=== PATIENT | female | born 1955 | race Caucasian/White ===

== ENCOUNTER 2022-05-05 08:56 | Observation (INO) ==
--- NOTE | 2022-05-05 09:11 | EKG ---
Test Reason : Chest pain Blood Pressure : */* mmHG Vent. Rate : 65 BPM Atrial Rate : 65 BPM P-R Int : 220 ms QRS Dur : 80 ms QT Int : 390 ms P-R-T Axes : 53 -2 40 degrees QTc Int : 405 ms Sinus rhythm with 1st degree AV block Low voltage QRS Cannot rule out Anterior infarct , age undetermined Abnormal ECG No previous ECGs available Confirmed by Jeremiah Gandhi ([id number]) on 05/06/2022 7:42:00 AM Referred By: Confirmed By: Jeremiah Gandhi
--- NOTE | 2022-05-05 09:11 | DR.CP ---
HPI Time Seen Time Seen by Provider: 05/05/22 09:10 Complaint Chief Complaint Doctor Comments: Patient states that she awoke this am with chest pain.She describes it as a sharp pain in her left chest that is nonradiating. Patient states that the pain was 4/10 when it started.She states that it is 0/10 at this time. Patient has a brother who was diagnosed with CAD age 60.She also has htn.Patient had a stress test many trs ago.Her chest pain was associated with sob. Patient denies: fever,n,v,headache,back pain,abdominal pain,cough,sore throat. PMH PMH Past Medical History: Hypertension Past Surgical History: Yes Surgical History: , Cholecystectomy and Hysterectomy Family History Family Medical History: [place] and Coronary Artery Disease Social History Do you use any recreational Drugs:: No PE Vitals Vitals: Temperature 98 F Pulse Rate 72 Respiratory Rate 14 Blood Pressure [Left Arm] 149/82 Blood Pressure 143/73 O2 Sat by Pulse Oximetry 98 COURSE Treatment Treatment: Patient was brought to a monitored room.IV access was initiated.Patient was given ntp 1/2 inch to ACW and asa 162mg po. Patient is currently not experiencing chest pain. Patient's BP continues to elevate and patient was given clonidine 0.1mg po.Patient's bp continued to elevate and patient was given hydralazine 10mg iv. Discussed case with Dr Gooden.Patient has been accepted to Dr Gooden's service for further inpatient evaluation and management of chest pain and hypertensive urgency. ROR Labs Reviewed Laboratory Results Reviewed?: Yes Result Diagrams: 05/05/22 09:18 05/05/22 09:18 Laboratory: WBC 10.6 X10^3/uL (3.6-10.0) H 05/05/22 09:18 RBC 4.39 X10^6/uL (3.5-5.4) 05/05/22 09:18 Hgb 13.0 g/dL (12.0-16.0) 05/05/22 09:18 Hct 37.8 % (36.0-47.0) 05/05/22 09:18 MCV 86.1 fL (80.0-100.0) 05/05/22 09:18 MCH 29.5 pg (27.0-34.0) 05/05/22 09:18 MCHC 34.2 g/dL (33.0-35.0) 05/05/22 09:18 RDW 13.9 % (11.6-16.5) 05/05/22 09:18 Plt Count 231 X10^3/uL (150.0-450.0) 05/05/22 09:18 MPV 8.7 fL (7.4-11.0) 05/05/22 09:18 Neut % (Auto) 72.3 % (42.0-75.0) 05/05/22 09:18 Lymph % (Auto) 17.3 % (21.0-51.0) L 05/05/22 09:18 [place] % (Auto) 5.5 % (0.0-13.0) 05/05/22 09:18 Eos % (Auto) 4.3 % (0.9-2.9) H 05/05/22 09:18 Baso % (Auto) 0.6 % (0.2-1.0) 05/05/22 09:18 Neut # (Auto) 7.7 x10^3/uL (2.2-4.8) H 05/05/22 09:18 Lymph # (Auto) 1.8 X10^3/uL (1.3-2.9) 05/05/22 09:18 [place] # (Auto) 0.6 x10^3/uL (0.3-0.8) 05/05/22 09:18 Eos # (Auto) 0.5 x10^3/uL (0.0-0.2) H 05/05/22 09:18 Baso # (Auto) 0.1 X10^3/uL (0.0-0.1) 05/05/22 09:18 Absolute Nucleated RBC 0.0 /100WBC 05/05/22 09:18 PT 12.7 SECONDS (11.8-14.3) 05/05/22 09:18 INR Target Range - 05/05/22 09:18 INR 0.98 (0.8-1.3) 05/05/22 09:18 APTT 26.6 SECONDS (22.9-36.5) 05/05/22 09:18 PTT Comment - 05/05/22 09:18 Sodium 140 mmol/L (136-145) 05/05/22 09:18 Corrected Sodium TNP 05/05/22 09:18 Potassium 3.7 mmol/L (3.5-5.1) 05/05/22 09:18 Chloride 105 mmol/L (98-107) 05/05/22 09:18 Carbon Dioxide 26.8 mmol/L (21-32) 05/05/22 09:18 BUN 29 mg/dL (7-18) H 05/05/22 09:18 Creatinine 1.08 mg/dL (0.55-1.02) H 05/05/22 09:18 Est GFR (MDRD) Af Amer > 60 (>60) 05/05/22 09:18 Est GFR (MDRD) Non-Af 54 (>60) L 05/05/22 09:18 Glucose 88 mg/dL (65-99) 05/05/22 09:18 Calcium 8.3 mg/dL (8.5-10.1) L 05/05/22 09:18 Corrected Calcium 8.9 mg/dL (8.5-10.1) 05/05/22 09:18 Magnesium 1.8 mg/dL (2.0-2.9) L 05/05/22 09:18 Total Bilirubin 0.30 mg/dL (0.2-1.0) 05/05/22 09:18 AST 13 Units/L (15-37) L 05/05/22 09:18 ALT 11 Units/L (12-78) L 05/05/22 09:18 Alkaline Phosphatase 93 Units/L (46-116) 05/05/22 09:18 Creatine Kinase 28 Units/L (26-192) 05/05/22 09:18 Troponin I High Sens 5.5 ng/L (4.0-60.0) 05/05/22 09:18 B-Natriuretic Peptide 39.5 pg/mL (0-79) 05/05/22 09:18 Total Protein 6.7 g/dL (6.4-8.2) 05/05/22 09:18 Albumin 3.2 g/dL (3.4-5.0) L 05/05/22 09:18 Globulin 3.5 g/dL (2.5-4.5) 05/05/22 09:18 Albumin/Globulin Ratio 0.9 Ratio (1.1-2.1) L 05/05/22 09:18 Amylase 63 Units/L (25-115) 05/05/22 09:18 Lipase 135 Units/L (73-393) 05/05/22 09:18 XRAY XRAY Interpreted by: Radiologist X-ray Results: CXR: No cardiopulmonary disease EKG Compared to prior EKG Dated: 04/07/22 Rate: 65 Portal: Normal (negative axis) Block: 1 (1st degree Block) Opioid Opioid Risk Tool Age (Nik box if 16-45): No History of Preadolescent Sexual Abuse: No Total: 0 Total Score Risk Category: Low Risk Copyright: Connell LR predicting aberrant behaviors Discharge Plan Diagnosis Discharge Problem: Chest pain, Hypertensive urgency Discharge Plan Patient Disposition: ADMITTED INPATIENT Condition: Stable Prescriptions: No Action clonidine HCl 0.1 mg tablet 1 tab PO BID tizanidine 4 mg tablet 1 tab PO QPM meloxicam 15 mg tablet 1 tab PO QDAY irbesartan 300 mg tablet 1 tab PO QDAY triamterene-hydrochlorothiazid 37.5-25 mg capsule 1 cap PO QDAY Health Concerns: Post Hospitalization: new medications and changes needed to prevent readmission or further decline. Pt educated and given instructions on all concerns. Plan of Treatment: Continue with present treatment and follow up plan. Pt is to keep follow up appointment as instructed and take medications as ordered. Orders to Discharge Patient Discharge Orders: Transfer (Routine); Ordered 05/05/22 Ordered By: Jennifer Osman Follow ups/Referrals Follow ups/Referrals: AFR[facility] BRAND [Primary Care Provider] - 3 days
[2022-05-05 09:14] VITALS: BMI 32.6
[2022-05-05] MEDS ORDERED: ASPIRIN 81 MG CHEWTAB PO STA (09:24)
[2022-05-05] MEDS ORDERED: NITRO-BID OINT 2% UD (E.R. USE ONLY) TD ONE (09:31)
[2022-05-05] MEDS ORDERED: NITRO-BID OINT 2% UD (E.R. USE ONLY) ONE (09:36)
[2022-05-05] MEDS ORDERED: ASPIRIN 81 MG CHEWTAB ONE (09:43)
[2022-05-05 09:47] LABS: BASOPHILS # (AUTO) 0.1 X10^3/uL (0.0-0.1); BASOPHILS % (AUTO) 0.6 % (0.2-1.0); EOSINOPHILS # (AUTO) 0.5 x10^3/uL (0.0-0.2); EOSINOPHILS % (AUTO) 4.3 % (0.9-2.9); HEMATOCRIT 37.8 % (36.0-47.0); LYMPHOCYTES # (AUTO) 1.8 X10^3/uL (1.3-2.9); LYMPHOCYTES % (AUTO) 17.3 % (21.0-51.0); MEAN CORPUSCULAR HEMOGLOBIN 29.5 pg (27.0-34.0); MEAN CORPUSCULAR HGB CONC 34.2 g/dL (33.0-35.0); MEAN CORPUSCULAR VOLUME 86.1 fL (80.0-100.0); MEAN PLATELET VOLUME 8.7 fL (7.4-11.0); MONOCYTES # (AUTO) 0.6 x10^3/uL (0.3-0.8); MONOCYTES % (AUTO) 5.5 % (0.0-13.0); NEUTROPHILS # (AUTO) 7.7 x10^3/uL (2.2-4.8); NEUTROPHILS % (AUTO) 72.3 % (42.0-75.0); RED BLOOD COUNT 4.39 X10^6/uL (3.5-5.4); RED CELL DISTRIBUTION WIDTH 13.9 % (11.6-16.5); WHITE BLOOD COUNT 10.6 X10^3/uL (3.6-10.0)
[2022-05-05 09:51] LABS: INR 0.98 (0.8-1.3)
[2022-05-05 10:07] LABS: ALANINE AMINOTRANSFERASE 11 Units/L (12-78); ALBUMIN 3.2 g/dL (3.4-5.0); ALKALINE PHOSPHATASE 93 Units/L (46-116); AMYLASE 63 Units/L (25-115); ASPARTATE AMINO TRANSFERASE 13 Units/L (15-37); BLOOD UREA NITROGEN 29 mg/dL (7-18); CALCIUM 8.3 mg/dL (8.5-10.1); CARBON DIOXIDE 26.8 mmol/L (21-32); CHLORIDE 105 mmol/L (98-107); COR CA(FOR HYPOALB) 8.9 mg/dL (8.5-10.1); CREATINE KINASE 28 Units/L (26-192); CREATININE 1.08 mg/dL (0.55-1.02); LIPASE 135 Units/L (73-393); MAGNESIUM 1.8 mg/dL (2.0-2.9); SODIUM 140 mmol/L (136-145); TOTAL PROTEIN 6.7 g/dL (6.4-8.2); eGFR NON BLACK RACES 54 (>60)
[2022-05-05] MEDS ORDERED: CATAPRES TAB 0.1 MG PO ONE (10:38)
[2022-05-05] MEDS ORDERED: TYLENOL 325 MG TAB PO ONE ×2 (10:41→10:45)
[2022-05-05] MEDS ORDERED: CATAPRES TAB 0.1 MG ONE (10:41)
[2022-05-05] MEDS ORDERED: APRESOLINE INJ 20 MG VIAL IVP ONE (11:10)
[2022-05-05] MEDS ORDERED: APRESOLINE INJ 20 MG VIAL ONE (11:11)
--- NOTE | 2022-05-05 11:15 | RAD ---
HISTORYLeft-sided chest painSTUDYAP chestCOMPARISONNoneFINDINGSHeart size normal, mild aortic dilation, clear lungs and pleural spaces.IMPRESSIONNo acute chest abnormality identified.Electronically signed by: STAN NEUMANN (May 05, 2022 11:13:39)
--- NOTE | 2022-05-05 11:53 | EKG ---
Test Reason : Chest Pain Blood Pressure : */* mmHG Vent. Rate : 69 BPM Atrial Rate : 69 BPM P-R Int : 190 ms QRS Dur : 80 ms QT Int : 398 ms P-R-T Axes : 47 5 45 degrees QTc Int : 426 ms Normal sinus rhythm Normal ECG When compared with ECG of 05-MAY-2022 09:09, (Unconfirmed) TX interval has decreased Confirmed by Jeremiah Gandhi ([id number]) on 05/06/2022 7:41:51 AM Referred By: Confirmed By: Jeremiah Gandhi
[2022-05-05] MEDS ORDERED: ZOFRAN INJ 4 MG VIAL IVP PRN (12:49)
[2022-05-05] MEDS ORDERED: MICRO K EXTEN CAP 10 MEQ PO PRN (13:06)
[2022-05-05] MEDS ORDERED: KLOR-CON PO PRN (13:06)
[2022-05-05] MEDS ORDERED: POTASSIUM CHLORIDE LIQ 20 MEQ UDC PO PRN (13:06)
[2022-05-05] MEDS ORDERED: K-RIDER 10 MEQ/NS 100 ML 10 MEQ/100 ML BAG IV PRN (13:06)
[2022-05-05] MEDS ORDERED: POTASSIUM CHL 60 MEQ/NS 0.45% 500 ML IV PRN (13:06)
[2022-05-05] MEDS ORDERED: POTASSIUM CHL 40 MEQ/NS 0.45% 500 ML IV PRN (13:06)
[2022-05-05] MEDS ORDERED: K-DUR TAB 20 MEQ PO PRN (13:06)
[2022-05-05] MEDS ORDERED: NS 250 ML IV 250 ML IV PRN (15:04)
[2022-05-05] MEDS: MAGNESIUM SULFATE 1 GRAM/100 mL PREMIX 1 G/100 ML BAG IV PRN ×2 (15:39→17:24)
[2022-05-05] MEDS: TYLENOL 325 MG TAB PO PRN (16:18)
[2022-05-05 19:24] LABS: BILIRUBIN,URINE NEGATIVE (NEGATIVE); BLOOD/HEMOGLOBIN,URINE NEGATIVE (NEGATIVE); GLUCOSE, URINE NEGATIVE (NEGATIVE); KETONES,URINE NEGATIVE (NEGATIVE); LEUKOCYTE ESTERASE ,URINE NEGATIVE (NEGATIVE); NITRITES,URINE NEGATIVE (NEGATIVE); PROTEIN,URINE NEGATIVE (NEGATIVE); UROBILINOGEN,URINE NORMAL (NORMAL)
[2022-05-05 19:36] LABS: APPEARANCE,URINE CLEAR (CLEAR); COLOR,URINE PALE YELLOW (YELLOW)
[2022-05-05] MEDS ORDERED: ZANAFLEX PO SCH (21:00)
[2022-05-06 05:02] LABS: BASOPHILS % (AUTO) 0.5 % (0.2-1.0); EOSINOPHILS # (AUTO) 0.3 x10^3/uL (0.0-0.2); EOSINOPHILS % (AUTO) 3.4 % (0.9-2.9); HEMATOCRIT 36.2 % (36.0-47.0); HEMOGLOBIN 12.3 g/dL (12.0-16.0); LYMPHOCYTES # (AUTO) 1.5 X10^3/uL (1.3-2.9); LYMPHOCYTES % (AUTO) 15.7 % (21.0-51.0); MEAN CORPUSCULAR HEMOGLOBIN 29.5 pg (27.0-34.0); MEAN CORPUSCULAR VOLUME 86.7 fL (80.0-100.0); MEAN PLATELET VOLUME 8.7 fL (7.4-11.0); MONOCYTES # (AUTO) 0.6 x10^3/uL (0.3-0.8); MONOCYTES % (AUTO) 6.3 % (0.0-13.0); NEUTROPHILS # (AUTO) 7.2 x10^3/uL (2.2-4.8); NEUTROPHILS % (AUTO) 74.1 % (42.0-75.0); RED BLOOD COUNT 4.17 X10^6/uL (3.5-5.4); WHITE BLOOD COUNT 9.8 X10^3/uL (3.6-10.0)
[2022-05-06 05:14] LABS: ALANINE AMINOTRANSFERASE 9 Units/L (12-78); ALBUMIN 2.8 g/dL (3.4-5.0); ALKALINE PHOSPHATASE 84 Units/L (46-116); ASPARTATE AMINO TRANSFERASE 11 Units/L (15-37); BLOOD UREA NITROGEN 25 mg/dL (7-18); CALCIUM 7.9 mg/dL (8.5-10.1); CARBON DIOXIDE 27.3 mmol/L (21-32); CHLORIDE 106 mmol/L (98-107); COR CA(FOR HYPOALB) 8.9 mg/dL (8.5-10.1); COR NA(FOR HYPERGLY) 139 mmol/L (136-145); CREATINE KINASE 29 Units/L (26-192); CREATININE 1.11 mg/dL (0.55-1.02); MAGNESIUM 2.3 mg/dL (2.0-2.9); SODIUM 139 mmol/L (136-145); TOTAL PROTEIN 6.1 g/dL (6.4-8.2); eGFR NON BLACK RACES 52 (>60)
[2022-05-06 08:08] VITALS: BP 150/78
[2022-05-06] MEDS ORDERED: MAXZIDE 37.5/25 MG PO SCH (09:00)
[2022-05-06] MEDS ORDERED: IRBESARTAN 300 MG PO SCH (09:00)
[2022-05-06] MEDS ORDERED: MOBIC TAB 15 MG PO SCH (09:00)
[2022-05-06] MEDS ORDERED: CATAPRES TAB 0.1 MG PO SCH (09:00)
--- NOTE | 2022-05-06 10:33 | DR.SSS ---
SHORT STAY SUMMARY Admission Date Date of Admission: 05/05/22 Discharge Date Discharge Date: 05/06/22 Admission Diagnoses Admission Diagnoses: Chest pain rule out Discharge Diagnoses Discharge Diagnoses: Chest pain ruled out Hypertension Chief Complaint Chief Complaint: Chest pain History of Present Illness History of Present Illness: Pt is a 66 year old female past medical history of hypertension that presented to the ER with chest pain. She reported having left sided chest pain that was sharp and non-radiating. Initially pain was 4/10 when it started and had resolved in the ED. Denies shortness of breath, diaphoresis. She was admitted for further observation and placed on telemetry. She was noted to be hypertensive in the ED and when blood pressure responded to medication, pain resolved. Labs/imaging: Wbc 9.8, Hgb 12.3, Plt 233, Na 139, K 4, Creatinine 1.11, Glucose 116, Troponin negative x 3, CXR no acute cardiopulmonary findings, UA negative. Pt responded well to medications. Blood pressure stable and cardiac enzymes negative. Pt discharged in stable condition, instructed to follow up with pcp and referral made to cardiology outpatient for further evaluation. Past Medical History Past Medical History: Hypertension Past Surgical History Surgical History: , Cholecystectomy and Hysterectomy Allergies Allergies Allergy/AdvReac Type Severity Reaction Status Date / Time Penicillins Allergy Unknown Verified 05/05/22 11:28 Sulfa (Sulfonamide Allergy Unknown Verified 05/05/22 11:28 Antibiotics) [SULFA] Medications Home Medications: Penicillins Allergy (Unknown, Verified 05/05/22 11:28) Sulfa (Sulfonamide Antibiotics) [SULFA] Allergy (Unknown, Verified 05/05/22 11:28) CONTINUE taking the following medications clonidine HCl 0.1 mg tablet 1 tab PO BID 05/05/22 [History] irbesartan 300 mg tablet 1 tab PO QDAY 05/05/22 [History] meloxicam 15 mg tablet 1 tab PO QDAY 05/05/22 [History] tizanidine 4 mg tablet 1 tab PO QPM 05/05/22 [History] triamterene 37.5 mg-hydrochlorothiazide 25 mg capsule 1 cap PO QDAY 05/05/22 [History] Family History Family Medical History: [place] and Coronary Artery Disease Social History Does patient currently use any type of tobacco product: No Have you used tobacco products in the last 12 months: No Type of Tobacco Use: None Does any household member use tobacco: No Alcohol Use: None Drug Use: None Review of Systems Constitutional: No Symptoms Reported Eyes: No Symptoms Reported ENT: No Symptoms Reported Respiratory: No Symptoms Reported Cardiovascular: Chest Pain Gastrointestinal: No Symptoms Reported Genitourinary: No Symptoms Reported Musculoskeletal: No Symptoms Reported Skin: No Symptoms Reported Neurological: No Symptoms Reported Physical Exam Vital Signs: Last Vital Signs Temp 98.0 F 05/06/22 08:00 Pulse 70 05/06/22 08:00 Resp 18 05/06/22 08:00 BP 150/78 05/06/22 08:00 Pulse Ox 98 05/06/22 08:00 O2 Del Method Room Air 05/05/22 20:23 Oriented: Normal Eyes: Normal Ear: Normal Nose: Normal Throat: Normal Respiratory: Clear Throughout Cardiovascular: Normal : Normal Auscultation: Bowel Sounds: Normal Palpation: Normal Tenderness: Normal Skin: Normal Musculoskeletal: Normal Psychiatric: Normal Mood Description: Calm Speech Pattern: Clear Labs Labs: Laboratory Last Values WBC 9.8 X10^3/uL (3.6-10.0) 05/06/22 04:26 RBC 4.17 X10^6/uL (3.5-5.4) 05/06/22 04:26 Hgb 12.3 g/dL (12.0-16.0) 05/06/22 04:26 Hct 36.2 % (36.0-47.0) 05/06/22 04:26 MCV 86.7 fL (80.0-100.0) 05/06/22 04:26 MCH 29.5 pg (27.0-34.0) 05/06/22 04:26 MCHC 34.0 g/dL (33.0-35.0) 05/06/22 04:26 RDW 14.0 % (11.6-16.5) 05/06/22 04:26 Plt Count 233 X10^3/uL (150.0-450.0) 05/06/22 04:26 MPV 8.7 fL (7.4-11.0) 05/06/22 04:26 Neut % (Auto) 74.1 % (42.0-75.0) 05/06/22 04:26 Lymph % (Auto) 15.7 % (21.0-51.0) L 05/06/22 04:26 [place] % (Auto) 6.3 % (0.0-13.0) 05/06/22 04:26 Eos % (Auto) 3.4 % (0.9-2.9) H 05/06/22 04:26 Baso % (Auto) 0.5 % (0.2-1.0) 05/06/22 04:26 Neut # (Auto) 7.2 x10^3/uL (2.2-4.8) H 05/06/22 04:26 Lymph # (Auto) 1.5 X10^3/uL (1.3-2.9) 05/06/22 04: [place] # (Auto) 0.6 x10^3/uL (0.3-0.8) 05/06/22 04: Eos # (Auto) 0.3 x10^3/uL (0.0-0.2) H 05/06/22 04:26 Baso # (Auto) 0.0 X10^3/uL (0.0-0.1) 05/06/22 04:26 Absolute Nucleated RBC 0.0 /100WBC 05/06/22 04:26 PT 12.7 SECONDS (11.8-14.3) 05/05/22 09:18 INR Target Range - 05/05/22 09:18 INR 0.98 (0.8-1.3) 05/05/22 09:18 APTT 26.6 SECONDS (22.9-36.5) 05/05/22 09:18 PTT Comment - 05/05/22 09:18 Sodium 139 mmol/L (136-145) 05/06/22 04:26 Corrected Sodium 139 mmol/L (136-145) 05/06/22 04:26 Potassium 4.0 mmol/L (3.5-5.1) 05/06/22 04:26 Chloride 106 mmol/L (98-107) 05/06/22 04:26 Carbon Dioxide 27.3 mmol/L (21-32) 05/06/22 04:26 BUN 25 mg/dL (7-18) H 05/06/22 04:26 Creatinine 1.11 mg/dL (0.55-1.02) H 05/06/22 04:26 Est GFR (MDRD) Af Amer > 60 (>60) 05/06/22 04:26 Est GFR (MDRD) Non-Af 52 (>60) L 05/06/22 04:26 Glucose 116 mg/dL (65-99) H 05/06/22 04:26 Calcium 7.9 mg/dL (8.5-10.1) L 05/06/22 04:26 Corrected Calcium 8.9 mg/dL (8.5-10.1) 05/06/22 04:26 Magnesium 2.3 mg/dL (2.0-2.9) 05/06/22 04:26 Total Bilirubin 0.30 mg/dL (0.2-1.0) 05/06/22 04:26 AST 11 Units/L (15-37) L 05/06/22 04:26 ALT 9 Units/L (12-78) L 05/06/22 04:26 Alkaline Phosphatase 84 Units/L (46-116) 05/06/22 04:26 Creatine Kinase 29 Units/L (26-192) 05/06/22 04:26 Troponin I High Sens 4.9 ng/L (4.0-60.0) 05/05/22 23:41 B-Natriuretic Peptide 39.5 pg/mL (0-79) 05/05/22 09:18 Total Protein 6.1 g/dL (6.4-8.2) L 05/06/22 04:26 Albumin 2.8 g/dL (3.4-5.0) L 05/06/22 04:26 Globulin 3.3 g/dL (2.5-4.5) 05/06/22 04:26 Albumin/Globulin Ratio 0.8 Ratio (1.1-2.1) L 05/06/22 04:26 Amylase 63 Units/L (25-115) 05/05/22 09:18 Lipase 135 Units/L (73-393) 05/05/22 09:18 Specimen Type Clean catch urine 05/05/22 18:40 Urine Color Pale yellow (YELLOW) 05/05/22 18:40 Urine Appearance Clear (CLEAR) 05/05/22 18:40 Urine pH 6.0 (5.0 - 8.0) 05/05/22 18:40 Ur Specific Sullivan 1.020 (1.000-1.030) 05/05/22 18:40 Urine Protein Negative (NEGATIVE) 05/05/22 18:40 Urine Glucose (UA) Negative (NEGATIVE) 05/05/22 18:40 Urine Ketones Negative (NEGATIVE) 05/05/22 18:40 Urine Blood Negative (NEGATIVE) 05/05/22 18:40 Urine Nitrite Negative (NEGATIVE) 05/05/22 18:40 Urine Bilirubin Negative (NEGATIVE) 05/05/22 18:40 Urine Urobilinogen Normal (NORMAL) 05/05/22 18:40 Ur Leukocyte Esterase Negative (NEGATIVE) 05/05/22 18:40 Hospital Course Hospital Course: Pt is a 66 year old female past medical history of hypertension that presented to the ER with chest pain. She reported having left sided chest pain that was sharp and non-radiating. Initially pain was 4/10 when it started and had resolved in the ED. Denies shortness of breath, diaphoresis. She was admitted for further observation and placed on telemetry. She was noted to be hypertensive in the ED and when blood pressure responded to medication, pain resolved. Labs/imaging: Wbc 9.8, Hgb 12.3, Plt 233, Na 139, K 4, Creatinine 1.11, Glucose 116, Troponin negative x 3, CXR no acute cardiopulmonary findings, UA negative. Pt responded well to medications. Blood pressure stable and cardiac enzymes negative. Pt discharged in stable condition, instructed to follow up with pcp and referral made to cardiology outpatient for further evaluation. Discharge Medications Discharge Medications: Home Medication List clonidine HCl 0.1 mg tablet 1 tab PO BID 05/05/22 [History] irbesartan 300 mg tablet 1 tab PO QDAY 05/05/22 [History] meloxicam 15 mg tablet 1 tab PO QDAY 05/05/22 [History] tizanidine 4 mg tablet 1 tab PO QPM 05/05/22 [History] triamterene 37.5 mg-hydrochlorothiazide 25 mg capsule 1 cap PO QDAY 05/05/22 [History] Prescriptions: Discharge Plan Discharge Plan Patient Disposition: 01 HOME, SELF-CARE Condition: Stable Health Concerns: Post Hospitalization: new medications and changes needed to prevent readmission or further decline. Pt educated and given instructions on all concerns. Plan of Treatment: Continue with present treatment and follow up plan. Pt is to keep follow up appointment as instructed and take medications as ordered. Prescriptions: Continued clonidine HCl 0.1 mg tablet 1 tab PO BID tizanidine 4 mg tablet 1 tab PO QPM meloxicam 15 mg tablet 1 tab PO QDAY irbesartan 300 mg tablet 1 tab PO QDAY triamterene-hydrochlorothiazid 37.5-25 mg capsule 1 cap PO QDAY Orders to Discharge Patient Discharge Orders: Discharge (Routine); Ordered 05/06/22 Ordered By: Jaxon Esquivel Follow ups/Referrals Follow ups/Referrals: [facility] BRAND [Primary Care Provider] - 3 days Instructions Stand Alone Forms: Excuse From Work or School
[2022-05-06] MEDS: TYLENOL 325 MG TAB PO PRN (10:38)
--- NOTE | 2022-05-06 11:25 | RAD ---
HISTORYCHEST PAINSSTUDYCHEST, 1 VIEWCOMPARISONChest x-ray 05/05/2022FINDINGSThe heart is normal in size. The pulmonary vasculature appears within normal limits. The lungs appear clear. No pneumothorax, pleural effusion, or focal consolidation. No acute osseous abnormality.IMPRESSIONNo acute cardiopulmonary findings .Electronically signed by: Tulio Gaviria (May 06, 2022 11:24:28)
== END 2022-05-06 11:30 | disposition home or self-care (01) ==
LOC: MED/SURG 08:56 → ER 08:56 → MED/SURG 12:29
PROVIDERS: ADMIT Emergency Medicine; ATTEND Internal Medicine
DX: R79.89 Other specified abnormal findings of blood chemistry; R07.89 Other chest pain; I10 Essential (primary) hypertension; R06.02 Shortness of breath